=== PATIENT | female | born 1955 | race Caucasian/White ===

== ENCOUNTER 2016-08-16 07:45 | Inpatient (IN) | payer OTHER ==
[~2016-08-16] VITALS: Ht 165.1 cm; Wt 82.7 kg
[~2016-08-16 07:45] MED LIST: BACITRACIN 50,000 UNITS/VIAL ONE; BUPIVACAINE HCL/PF 0.5% 30 ML VIAL ONE; FentaNYL CITRATE-PF 100 MCG/2 ML VIAL IVP ONE; KETAMINE HCL 50 MG/ML 10 ML VIAL IVP ONE; LIDOCAINE HCL/PF 2% 5 ML VIAL IM ONE; MIDAZOLAM HCL 2 MG/2 ML VIAL IVP ONE; ONDANSETRON HCL 4 MG/2 ML VIAL IVP ONE; ROCURONIUM BROMIDE 10 MG/ML 5 ML VIAL IVP ONE; SODIUM CHLORIDE 0.9% 10 ML ONE; SODIUM CHLORIDE 0.9% 100 ML ONE; SODIUM CL IRRIG SOLN BAG 3,000 ML IRRIG ONE
[2016-08-16] MEDS ORDERED: RINGERS SOLUTION,LACTATED 1,000 ML IV ONE (08:00)
[2016-08-16] MEDS ORDERED: METO25 PO (08:26)
[2016-08-16] MEDS ORDERED: METF10002 PO (08:26)
[2016-08-16] MEDS ORDERED: OMEP20 PO (08:26)
[2016-08-16] MEDS ORDERED: ASPI-1093 PO (08:26)
[2016-08-16] MEDS ORDERED: LOSA50TA37 PO (08:26)
[2016-08-16] MEDS ORDERED: CELECOXIB 200 MG CAPSULE PO ONE (08:30)
[2016-08-16] MEDS ORDERED: TRANEXAMIC ACID 1,000 MG in DEXTROSE 5%-WATER 50 ML IV ONE (08:30)
[2016-08-16] MEDS ORDERED: ONDANSETRON HCL 4 MG/2 ML VIAL IVP PRN ×2 (08:30→09:15)
[2016-08-16] MEDS ORDERED: ZOLPIDEM TARTRATE 5 MG TABLET PO PRN (08:30)
[2016-08-16] MEDS ORDERED: MEPERIDINE-PF 25 MG/ML SYRINGE IVP PRN (08:30)
[2016-08-16] MEDS ORDERED: HYDROmorphone 2 MG/ML SYRINGE IVP PRN ×2 (08:30)
[2016-08-16] MEDS ORDERED: PROMETHAZINE HCL 25 MG/ML VIAL IM PRN (08:30)
[2016-08-16] MEDS ORDERED: FentaNYL CITRATE-PF 100 MCG/2 ML VIAL IVP PRN (08:30)
[2016-08-16] MEDS ORDERED: CeFAZolin 2 GM/DEXTROSE 50 ML IV ONE (09:00)
[2016-08-16] MEDS: ACETAMINOPHEN 1000 MG/ISO-OSM 100 ML IV SCH ×3 (09:02→20:11)
[2016-08-16 09:06] LABS: GLUCOSE,POINT OF CARE 110 MG/DL (70-110)
[2016-08-16] MEDS ORDERED: BENZOCAINE/MENTHOL LOZENGE [8 LOZENGES/PACKET] PO PRN (09:15)
[2016-08-16] MEDS ORDERED: DiphenhydrAMINE HCL 50 MG/ML VIAL IVP PRN (09:15)
[2016-08-16] MEDS ORDERED: BISACODYL 10 MG RECTAL RECTAL SUPPOSITORY PR PRN ×2 (09:15→20:45)
[2016-08-16] MEDS ORDERED: 0.9% SODIUM CHLORIDE 10 ML SYRINGE IVP PRN (09:15)
[2016-08-16] MEDS: BUPIVACAINE LIPOSOME/PF 1.3%-13.3MG/ML SUSPENSION 20 ML VIAL INJ ONE ×2 (09:47→10:17)
[2016-08-16 12:25] VITALS: BP 129/68
[2016-08-16] MEDS: SODIUM CHLORIDE 0.9% 1,000 ML IV SCH (13:46)
[2016-08-16 14:15] VITALS: BP 138/73
[2016-08-16 16:00] VITALS: BP 104/59
[2016-08-16] MEDS ORDERED: MetFORMIN HCL 500 MG TABLET PO SCH (17:30)
[2016-08-16] MEDS: CeFAZolin 1 GM/DEXTROSE 50 ML IV SCH (17:40)
[2016-08-16] MEDS: OXYGEN THERAPY IH SCH ×2 (20:00)
[2016-08-16] MEDS: CELECOXIB 200 MG CAPSULE PO SCH (20:11)
[2016-08-16 20:27] VITALS: BP 126/70
[2016-08-16] MEDS ORDERED: DEXTROSE 50%-WATER 25 GM/50 ML SYRINGE IVP PRN (20:30)
[2016-08-16 21:02] LABS: GLUCOSE,POINT OF CARE 160 MG/DL (70-110)
[2016-08-16] MEDS: INSULIN ASPART 100 UNITS/ML SQ PRN (21:23)
[2016-08-16] MEDS: DOCUSATE SODIUM 100 MG CAPSULE PO SCH (22:00)
[2016-08-16 23:34] VITALS: BP 115/75
[2016-08-17] VITALS (7 sets, daily range): BP systolic 140–158; BP diastolic 71–98
[2016-08-17] MEDS: CeFAZolin 1 GM/DEXTROSE 50 ML IV SCH (02:00)
[2016-08-17] MEDS: ACETAMINOPHEN 1000 MG/ISO-OSM 100 ML IV SCH (02:49)
[2016-08-17] MEDS: SODIUM CHLORIDE 0.9% 1,000 ML IV SCH (02:49)
[2016-08-17] MEDS: CYCLOBENZAPRINE HCL 10 MG TABLET PO PRN ×2 (03:43→11:48)
[2016-08-17] MEDS: MORPHINE SULFATE 4 MG/ML SYRINGE IVP PRN ×3 (06:08→10:03)
[2016-08-17 06:10] LABS: BASOPHILS % (AUTO) 0.2 % (0.0-2.0); EOSINOPHILS % (AUTO) 0.8 % (1.0-6.0); HEMATOCRIT 28.3 % (36-46); HEMOGLOBIN 9.3 g/dL (12.0-16.0); LYMPHOCYTES # (AUTO) 1.2 K/uL (1.0-4.8); MEAN CORPUSCULAR HEMOGLOBIN 27.8 pg (26.0-34.0); MEAN CORPUSCULAR HGB CONC 32.9 G/dL (31.0-37.0); MEAN CORPUSCULAR VOLUME 85 fL (80-100); MONOCYTES # (AUTO) 0.6 K/uL (0.1-1.0); MONOCYTES % (AUTO) 9.2 % (2.0-9.0); NEUTROPHILS # (AUTO) 4.9 K/uL (1.8-7.7); NEUTROPHILS % (AUTO) 72.8 % (40.0-70.0); PLATELET COUNT (AUTO) 150 K/uL (150-450); RED BLOOD CELL COUNT(AUTO) 3.35 MIL/uL (4.00-5.20); RED CELL DISTRIBUTION WIDTH 14.5 % (11.5-14.5); WHITE BLOOD COUNT (AUTO) 6.8 K/uL (4.5-11.0)
[2016-08-17 06:27] LABS: GLUCOSE,POINT OF CARE 128 MG/DL (70-110)
[2016-08-17 06:34] LABS: ANION GAP 8 mmol/L (8-16); CARBON DIOXIDE 25 mmol/L (22-29); CHLORIDE 107 mmol/L (98-107); CREATININE 0.63 mg/dL (0.60-1.30); GLOMERULAR FILTR. RATE CALC > 60 mL/min (>60); POTASSIUM 3.6 mmol/L (3.5-5.1); SODIUM SERUM 140 mmol/L (136-145); UREA NITROGEN, BLOOD 14 mg/dL (7-18)
[2016-08-17] MEDS: OXYGEN THERAPY IH SCH ×4 (08:00→20:00)
[2016-08-17] MEDS: PANTOPRAZOLE SODIUM 40 MG DR TABLET PO SCH (08:09)
[2016-08-17] MEDS: DOCUSATE SODIUM 100 MG CAPSULE PO SCH ×2 (08:09→19:54)
[2016-08-17] MEDS: METOPROLOL TARTRATE 25 MG TABLET PO SCH (08:10)
[2016-08-17] MEDS: CELECOXIB 200 MG CAPSULE PO SCH ×2 (08:11→19:54)
[2016-08-17] MEDS ORDERED: LOSARTAN POTASSIUM 50 MG TABLET PO SCH (09:00)
[2016-08-17] MEDS: RIVAROXABAN 10 MG TABLET PO SCH ×2 (11:00→18:04)
[2016-08-17 11:48] LABS: GLUCOSE,POINT OF CARE 172 MG/DL (70-110)
[2016-08-17] MEDS: INSULIN ASPART 100 UNITS/ML SQ PRN ×3 (11:52→21:59)
[2016-08-17] MEDS: OxyCODONE HCL/ACETAMINOPHEN 10-325 MG TABLET PO PRN ×2 (14:39→19:54)
[2016-08-17] MEDS: FERROUS SULFATE 325 MG EC TABLET PO SCH (18:04)
[2016-08-17 18:23] LABS: GLUCOSE,POINT OF CARE 177 MG/DL (70-110)
[2016-08-17 22:07] LABS: GLUCOSE,POINT OF CARE 169 MG/DL (70-110)
[2016-08-18 05:26] VITALS: BP 149/91
[2016-08-18] MEDS: OxyCODONE HCL/ACETAMINOPHEN 10-325 MG TABLET PO PRN ×2 (05:34→12:17)
[2016-08-18 06:37] LABS: GLUCOSE,POINT OF CARE 139 MG/DL (70-110)
[2016-08-18 06:47] LABS: BASOPHILS % (AUTO) 0.3 % (0.0-2.0); EOSINOPHILS % (AUTO) 1.1 % (1.0-6.0); HEMATOCRIT 30.2 % (36-46); HEMOGLOBIN 9.9 g/dL (12.0-16.0); LYMPHOCYTES % (AUTO) 15.4 % (22.0-44.0); MEAN CORPUSCULAR HEMOGLOBIN 27.8 pg (26.0-34.0); MEAN CORPUSCULAR HGB CONC 32.7 G/dL (31.0-37.0); MEAN CORPUSCULAR VOLUME 85 fL (80-100); MONOCYTES # (AUTO) 0.6 K/uL (0.1-1.0); MONOCYTES % (AUTO) 8.7 % (2.0-9.0); NEUTROPHILS # (AUTO) 5.1 K/uL (1.8-7.7); NEUTROPHILS % (AUTO) 74.5 % (40.0-70.0); PLATELET COUNT (AUTO) 158 K/uL (150-450); RED BLOOD CELL COUNT(AUTO) 3.55 MIL/uL (4.00-5.20); RED CELL DISTRIBUTION WIDTH 14.5 % (11.5-14.5); WHITE BLOOD COUNT (AUTO) 6.8 K/uL (4.5-11.0)
[2016-08-18 07:40] VITALS: BP 146/91
[2016-08-18] MEDS: FERROUS SULFATE 325 MG EC TABLET PO SCH ×2 (07:50→11:57)
[2016-08-18] MEDS: CYCLOBENZAPRINE HCL 10 MG TABLET PO PRN (07:50)
[2016-08-18] MEDS: OXYGEN THERAPY IH SCH ×2 (08:00)
[2016-08-18] MEDS: CELECOXIB 200 MG CAPSULE PO SCH (08:33)
[2016-08-18] MEDS: DOCUSATE SODIUM 100 MG CAPSULE PO SCH (08:33)
[2016-08-18] MEDS: PANTOPRAZOLE SODIUM 40 MG DR TABLET PO SCH (08:33)
[2016-08-18] MEDS: METOPROLOL TARTRATE 25 MG TABLET PO SCH (08:34)
[2016-08-18 11:05] VITALS: BP 131/72
[2016-08-18 11:48] LABS: GLUCOSE,POINT OF CARE 175 MG/DL (70-110)
[2016-08-18] MEDS: INSULIN ASPART 100 UNITS/ML SQ PRN (11:58)
[2016-08-18 15:24] VITALS: BP 117/64
[2016-08-18] MEDS: RIVAROXABAN 10 MG TABLET PO SCH (16:50)
[2016-08-19] MEDS ORDERED: CeFAZolin 2 GM/DEXTROSE 50 ML IV ONE (16:22)
[2016-08-19] MEDS ORDERED: ACETAMINOPHEN 1000 MG/ISO-OSM 100 ML IV ONE (16:22)
[2016-08-19] MEDS ORDERED: RINGERS SOLUTION,LACTATED 1,000 ML IV ONE (16:22)
[2016-08-19] MEDS ORDERED: CELECOXIB 200 MG CAPSULE ONE (16:22)
== END 2016-08-18 17:04 | DRG 302 ==
LOC: 4E 07:45
PROVIDERS: ADMIT Orthopaedic Surgery; ATTEND Orthopaedic Surgery
PROC: 0SRC0J9 Replacement of Right Knee Joint with Synthetic Substitute, Cemented, Open Approach (ICD-10-PCS; principal; 2016-08-16 09:41)
DX: M17.11 Unilateral primary osteoarthritis, right knee (principal); I10 Essential (primary) hypertension; E11.9 Type 2 diabetes mellitus without complications; E66.9 Obesity, unspecified; D64.9 Anemia, unspecified; F17.200 Nicotine dependence, unspecified, uncomplicated; Z83.3 Family history of diabetes mellitus; Z82.49 Family history of ischemic heart disease and other diseases of the circulatory system; Z68.30 Body mass index [BMI] 30.0-30.9, adult; Z79.4 Long term (current) use of insulin; Z28.89 Immunization not carried out for other reason
CPT/HCPCS: 82962; 87081; 88300; 97110; 97116; 97162; 97167; 97530; 97535; C9290; G0238; J0131; J0690; J1170; J2250; J2270; J2405; J3010; J3490; J7030; J7050; J7060; J7120